=== PATIENT | female | born 1960 | race Caucasian/White ===

== ENCOUNTER → 2017-12-29 | Outpatient (CLI) | payer MEDICARE ==
--- NOTE | 2017-12-29 14:26 | US ---
EXAMINATION TYPE: US carotid duplex BILAT DATE OF EXAM: 12/29/2017 COMPARISON: NONE CLINICAL HISTORY: I69.3 Stroke. Pt in wheel chair always EXAM MEASUREMENTS: RIGHT: Peak Systolic Velocity (PSV) cm/sec ----- Right CCA: 103 ----- Right ICA: 76.1 ----- Right ECA: 79.9 ICA/CCA ratio: 0.7 RIGHT: End Diastole cm/sec ----- Right CCA: 16.3 ----- Right ICA: 15.7 ----- Right ECA: 10.9 LEFT: Peak Systolic Velocity (PSV) cm/sec ----- Left CCA: 94.4 ----- Left ICA: 68.9 ----- Left ECA: 51.6 ICA/CCA ratio: 0.7 LEFT: End Diastole cm/sec ----- Left CCA: 18.7 ----- Left ICA: 24.4 ----- Left ECA: 5.1 VERTEBRALS (direction of flow): Right Vertebral: Antegrade Left Vertebral: non visualization Rhythm: Normal IMPRESSION: 1. Mild degree of grayscale atheromatous plaquing with no sonographically evident hemodynamically sig nificant stenosis within either visualized carotid arterial system. 2. Nonvisualization of the left vertebral artery. If there is concern for occlusion CT neck could be performed.
== END ==
LOC: RADUSWWP 13:34
PROVIDERS: ATTEND Psychiatry & Neurology Neurology
DX: I63.9 Cerebral infarction, unspecified (principal)
CPT/HCPCS: 93880

== ENCOUNTER → 2018-01-15 | Outpatient (CLI) | payer OTHER, MEDICARE ==
--- NOTE | 2018-01-15 18:28 | CT ---
EXAMINATION TYPE: CT cervical spine wo con DATE OF EXAM: 01/15/2018 COMPARISON: None HISTORY: neck pain, no injury CT DLP: 690 mGycm Automated exposure control for dose reduction was used. TECHNIQUE: CT scan of the cervical spine is obtained without contrast, axial images are obtained, sa gittal and coronal reformatted images are also reviewed. FINDINGS: There is moderate narrowing at C5-6 C6-7 disc spaces with spur formation. There is mild str aightening of the cervical spine. The posterior elements are intact. Skull base is intact. There is n o evidence for fracture. IMPRESSION: Spondylotic changes. No fracture seen. There is mild relative spinal stenosis at C5-6 due to posterior spur formation.
--- NOTE | 2018-01-17 11:19 | MR ---
EXAMINATION TYPE: MR brain wo con DATE OF EXAM: 01/15/2018 6:19 PM COMPARISON: NONE HISTORY: Cerebral infarction FINDINGS: The ventricles, basal cisterns and sulci overlying the cerebral convexities are moderately enlarged. There is evidence of moderate periventricular white matter ischemic demyelination. Remote deep white matter insults are also noted. Remote insult right temporal lobe. No acute edema is seen on diffusion weighted imaging. There is no evidence for midline shift or mass effect. Acute intracranial hemorrhage or extra-axial collection is not evident. The paranasal sinuses and mastoid air cells are well-aerated. IMPRESSION: Age-related atrophic and chronic small vessel ischemic change. No acute intracranial process at this time.
== END | disposition home or self-care (01) ==
LOC: RADCTMAIN 17:27
PROVIDERS: ATTEND Psychiatry & Neurology Neurology
DX: G31.1 Senile degeneration of brain, not elsewhere classified (principal); I67.82 Cerebral ischemia; M48.02 Spinal stenosis, cervical region; M47.812 Spondylosis without myelopathy or radiculopathy, cervical region
CPT/HCPCS: 70551; 72125

== ENCOUNTER → 2018-02-18 | Outpatient (CLI) | payer OTHER, MEDICARE ==
--- NOTE | 2018-02-18 12:52 | CT ---
EXAMINATION TYPE: CT angio neck DATE OF EXAM: 02/18/2018 HISTORY: Cerebral infarction. COMPARISON: 01/15/2018 CT DLP: 389.8 mGycm. Automated Exposure Control for Dose Reduction was Utilized. TECHNIQUE: CTA scan of the neck is performed with IV Contrast, patient injected with 60 mL of Isovue 370, axial images are obtained, coronal and sagittal reformatted images are reviewed. Three-D recons tructed images are created on an independent workstation and reviewed. Source images are reviewed. FINDINGS: Carotid/Vascular Structures: Internal carotid arteries follow a tortuous course to the skull base. Th e mid internal carotid arteries and the fairly medial position in the space posterior to the paraphar yngeal soft tissues. Carotid bulbs appear normal. Internal carotid arteries appear normal without sig nificant flow-limiting stenosis. Vertebral arteries are codominant. Vertebral arteries are patent to the level of the basilar artery. Other: There is limited evaluation of the minto of Iglesias which appears grossly normal. IMPRESSION: 1. No significant stenosis at the internal carotid arteries. 2. Note the mid internal carotid arteries following a tortuous course are fairly medial and in the pr evertebral soft tissues at the level of the mandible.
== END | disposition home or self-care (01) ==
LOC: RADCTMAIN 10:52
PROVIDERS: ATTEND Psychiatry & Neurology Neurology
DX: I63.9 Cerebral infarction, unspecified (principal)
CPT/HCPCS: 70498; Q9967

== ENCOUNTER → 2018-10-04 | Outpatient (CLI) | payer MEDICARE ==
[2018-10-04 17:51] LABS: African American GFR (CKD) 110.7 (60.0-200.0); Albumin 4.3 g/dL (3.80-4.90); Albumin/Globulin Ratio 1.87 (1.60-3.17); Anion Gap 10.5 mmol/L (4.00-12.00); BUN/Creat Ratio 18.57 Ratio (12.00-20.00); C Reactive Protein 1.6 mg/dL (0.0-0.8); Calcium 9.6 mg/dL (8.7-10.3); Carbon Dioxide 28.5 mmol/L (21.6-31.8); Globulin 2.3 g/dL (1.6-3.3); Potassium 3.8 mmol/L (3.5-5.5); Total Bilirubin 0.3 mg/dL (0.3-1.2); Total Protein 6.6 g/dL (6.2-8.2)
== END | disposition home or self-care (01) ==
LOC: LABWHC1 10:56
PROVIDERS: ATTEND Psychiatry & Neurology Pain Medicine
DX: M62.81 Muscle weakness (generalized) (principal); R41.3 Other amnesia
CPT/HCPCS: 36415; 80053; 82550; 85652; 86140

== ENCOUNTER 2019-04-14 10:13 | Day surgery (SDC) | payer MEDICARE ==
[2019-04-12 10:38] VITALS: BMI 45.6
[~2019-04-14 10:13] MED LIST: LACTATED RINGERS 1,000 ML IV SCH; LIDOCAINE 1% (10MG/ML) FOR IV START INTRADERMA PRN
[2019-04-14 10:50] VITALS: TEMP 97.3
[2019-04-14] MEDS ORDERED: PROPOFOL 10 MG/ML 20 ML VIAL IV ONE (11:26)
[2019-04-14] MEDS ORDERED: LIDOCAINE 1% INJ 10MG/ML (20 ML MDV) ONE (11:26)
--- NOTE | 2019-04-14 12:13 | P.PCN ---
Date of Procedure: 04/14/19 Procedure(s) Performed: BRIEF HISTORY: Patient is a 58-year-old pleasant white female with history of paraplegia and wheelchair-bound is being evaluated for intermittent rectal bleeding and hence scheduled for an elective colonoscopy as a part of evaluation. PROCEDURE PERFORMED: Colonoscopy. PREOPERATIVE DIAGNOSIS: Intermittent rectal bleeding. IV sedation per Anesthesia. PROCEDURE: After informed consent was obtained, the patient, was brought into the endoscopy unit. IV sedation was administered by Anesthesia under continuous monitoring. Digital rectal examination was normal. Initially the Olympus CF-160 flexible video colonoscope was then inserted in the rectum, gradually advanced into the hepatic flexure and further advancement advancement was not possible despite applying abdominal pressure and changing patient position. After trying this for 10 minutes I decided not to proceed any further, and this time the scope was gradually withdrawn. Careful examination was performed as the scope was gradually withdrawn. Mucosa of the transverse colon, descending colon, sigmoid colon, and rectum appeared normal. Retroflexion was performed in the rectum and small internal hemorrhoids hemorrhoids with prolapse ere seen. The patient tolerated the procedure well. IMPRESSION: Normal-appearing colon from rectum to hepatic flexure and further advancement was not possible. Small internal hemorrhoids and small rectal prolapse RECOMMENDATIONS: Findings of this examination were discussed with the patient as well as her caregiver. she was advised to avoid straining and constipation. She can have a repeat colonoscopy in 10 years.
[2019-04-14 13:10] VITALS: PULSE 77
[2019-04-14 13:11] VITALS: BP 135/74; RESP 18
== END 2019-04-14 13:12 | disposition home or self-care (01) ==
LOC: ORWHC2ENDO 10:13
PROVIDERS: ATTEND Internal Medicine Gastroenterology
DX: K64.8 Other hemorrhoids (principal); K62.5 Hemorrhage of anus and rectum; E78.5 Hyperlipidemia, unspecified; N31.9 Neuromuscular dysfunction of bladder, unspecified; Z79.899 Other long term (current) drug therapy; Z79.2 Long term (current) use of antibiotics; Z79.82 Long term (current) use of aspirin; Z90.710 Acquired absence of both cervix and uterus
CPT/HCPCS: 45378; J2001; J2704

== ENCOUNTER → 2019-04-18 | Day surgery (SDC) | payer MEDICARE ==
[~2019-04-18] MED LIST changes: +IOPAMIDOL-250 50ML BTL IV ONE; -LACTATED RINGERS 1,000 ML IV SCH; -LIDOCAINE 1% (10MG/ML) FOR IV START INTRADERMA PRN; +LIDOCAINE 1% INJ 10MG/ML (20 ML MDV) SQ ONE
--- NOTE | 2019-04-18 19:40 | IR ---
PICC LINE PLACEMENT: HISTORY: Infection requiring long-term antibiotic therapy PROCEDURE: Ultrasound and fluoroscopic guidance of PICC line placement. COMPLICATIONS: None ANESTHESIA: 1. 1% Lidocaine locally. FINDINGS/TECHNIQUE: The procedure was explained to the patient. The risks, complications, benefits and alternatives were discussed and any questions were answered. Informed consent was obtained. The patient was placed supine on the fluoroscopic table and prepped and draped in the usual sterile fash ion. Utilizing a 21 gauge needle and sonographic and fluoroscopic guidance, access in the right bra chial vein was achieved and there is placement of a 0.018 guidewire. The vein is patent. A 4-F olivares th was placed over the guidewire. The guidewire and dilator were removed and a 4-F. PICC line was pl aced through the sheath with the tip at the level of the SVC. The sheath was removed, the catheter w as flushed and sutured into position. The patient was stable throughout the procedure and remained s table upon discharge from the Department of Radiology. The vein puncture was patent under ultrasound. A rivas scale image was obtained to document patency of the vein punctured. All elements of the maximal barrier technique were utilized. FLUOROSCOPY TIME: 0.8 minutes and one image submitted IMPRESSION: Successful PICC line placement under ultrasound and fluoroscopic guidance.
== END ==
LOC: CATHCVL 14:24
PROVIDERS: ATTEND Radiology Diagnostic Radiology
DX: N39.0 Urinary tract infection, site not specified (principal); B37.3 Candidiasis of vulva and vagina; R53.83 Other fatigue; G89.29 Other chronic pain; I10 Essential (primary) hypertension; K59.00 Constipation, unspecified; E66.01 Morbid (severe) obesity due to excess calories; E78.5 Hyperlipidemia, unspecified; E87.5 Hyperkalemia; Z99.3 Dependence on wheelchair; Z79.2 Long term (current) use of antibiotics; Z79.899 Other long term (current) drug therapy; Z79.82 Long term (current) use of aspirin; Z68.36 Body mass index [BMI] 36.0-36.9, adult; Z90.710 Acquired absence of both cervix and uterus
CPT/HCPCS: 36573; C1751; C1769; J2001; Q9966

== ENCOUNTER → 2020-01-11 | Day surgery (SDC) | payer MEDICARE ==
[~2020-01-11] MED LIST changes: -IOPAMIDOL-250 50ML BTL IV ONE; +LIDOCAINE 1% INJ 10MG/ML (20 ML MDV) ONE
[2020-01-11 11:48] VITALS: BP 161/78; PULSE 74; RESP 16; TEMP 97.8
--- NOTE | 2020-01-11 14:02 | IR ---
EXAMINATION TYPE: IR cvc insert >=5 years DATE OF EXAM: 01/11/2020 COMPARISON: NONE CLINICAL HISTORY: Infection Needs long-term intravenous access for antibiotics. PROCEDURE: Hand hygiene obtained with soap and water and alcohol-based hand rub. After informed consent, the skin overlying the left brachial vein was localized with ultrasound and n oted to be compressible and patent. An ultrasound image was obtained and submitted on the patient's chart. The overlying skin was prepped and draped and Lidocaine was used for local anesthesia. A ski n sweta was made with a scalpel. Access was gained to the vein under ultrasound guidance with a 21 ga uge needle and a 0.018 inch wire was advanced. Access site was dilated with Peel-Away sheath and cat heter tailored to the appropriate length and advanced such that the distal tip is at the cavoatrial j unction. Spot image was obtained verifying placement. Catheter was fixed to the skin and a sterile dressing was placed following hemostasis. Catheter was aspirated and flushed with saline. Patient w as discharged in stable condition without complication.Maximal barrier technique is utilized. Ultras ound image is documented on the chart. Ultrasound used with sterile technique. Fluoro time and fluoroscopic images submitted to document procedure: 0.5 minutes fluoroscopy time, 21 3 intraoperative C-arm images IMPRESSION: STATUS POST ULTRASOUND AND FLUOROSCOPIC GUIDED PICC LINE PLACEMENT, READY FOR USE. THIS PROCEDURE WAS PERFORMED BY THE UNDERSIGNED.
== END ==
LOC: CATHCVL 10:50
PROVIDERS: ATTEND Radiology Diagnostic Radiology
DX: N39.0 Urinary tract infection, site not specified (principal); G89.29 Other chronic pain; H10.10 Acute atopic conjunctivitis, unspecified eye; B37.2 Candidiasis of skin and nail; I10 Essential (primary) hypertension; E87.5 Hyperkalemia; E78.5 Hyperlipidemia, unspecified; G47.00 Insomnia, unspecified; E66.01 Morbid (severe) obesity due to excess calories; N32.81 Overactive bladder; B37.3 Candidiasis of vulva and vagina; E55.9 Vitamin D deficiency, unspecified; Z79.82 Long term (current) use of aspirin; Z79.52 Long term (current) use of systemic steroids; Z79.899 Other long term (current) drug therapy; Z87.19 Personal history of other diseases of the digestive system; Z99.3 Dependence on wheelchair; Z79.891 Long term (current) use of opiate analgesic; Z68.43 Body mass index [BMI] 50.0-59.9, adult; Z90.710 Acquired absence of both cervix and uterus
CPT/HCPCS: 36573; C1751; C1769; J2001

== ENCOUNTER → 2021-01-25 | Outpatient (CLI) | payer MEDICARE ==
[2021-01-25 13:18] VITALS: BP 101/70; PULSE 79; RESP 18; TEMP 98.1
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
== END ==
LOC: WWCWWP 12:57
PROVIDERS: ATTEND Surgery
DX: N63.11 Unspecified lump in the right breast, upper outer quadrant (principal); R92.8 Other abnormal and inconclusive findings on diagnostic imaging of breast; S06.2X9A Diffuse traumatic brain injury with loss of consciousness of unspecified duration, initial encounter; R41.3 Other amnesia; Z87.891 Personal history of nicotine dependence

== ENCOUNTER → 2021-01-28 | Day surgery (SDC) | payer MEDICARE ==
[2021-01-28 13:01] VITALS: RESP 12
[2021-01-28 14:27] VITALS: BP 117/62; PULSE 97; TEMP 98.7
--- NOTE | 2021-01-28 19:56 | USB ---
EXAMINATION TYPE: US biopsy breast VAD RT DATE OF EXAM: 01/28/2021 CLINICAL HISTORY: 60-year-old female referred for biopsy of palpable right breast mass. Special needs patient in wheelchair. TECHNIQUE: Ultrasound guided core biopsy of the right breast. COMPARISON: Outside workup not available for review. FINDINGS: The procedure of ultrasound guided core biopsy was explained to the patient. Benefits, alternatives, and risks were discussed with the patient and caregiver. An informed consent was then obtained. The patient was placed in supine positioning for imaging and for the procedure. The overlying skin was prepped and draped in usual sterile fashion. Lidocaine was used as anesthetic into the skin followed by lidocaine/epinephrine into the subcutaneous tissue up to area of concern in the 9:00 right breast. Large lobulated vascular mass measuring up to 3.4 cm was identified and targeted for biopsy. Speckled calcifications are present within the mass. Under ultrasound guidance, a 13-gauge vacuum-assisted mammotome Elite biopsy gun was used to obtain 4 core samples. Following this, a Hydromark biopsy clip was left in lesion. The patient tolerated the procedure well without any immediate complication. The patient was kept in the radiology department for short stay after the procedure and then discharged home in stable condition. Given the patient's limited mobility and the lack of any available recent workup, postbiopsy mammogram was deferred at this time. If outside workup is made available for review and postbiopsy mammogram is needed for surgical planning, imaging can be performed at that time. IMPRESSION: Successful, uncomplicated ultrasound guided core biopsy of the BI-RADS 5, 3.4 cm palpable 9:00 right breast mass. Special needs patient with procedure performed in the wheelchair. Full pathology results to follow. Pathology Results: Malignant RIGHT BREAST, ULTRASOUND GUIDED CORE BIOPSY: Invasive solid papillary carcinoma. See Surgical Pathology Cancer Case Summary and Comment. Recommendation Surgical consult of the right breast. [facility]
== END ==
LOC: RADUSWWP 12:00
PROVIDERS: ATTEND Surgery
DX: C50.911 Malignant neoplasm of unspecified site of right female breast (principal)
CPT/HCPCS: 19083; 88305; 88342; 88341; A4648; J2001

== ENCOUNTER → 2021-02-08 | Outpatient (CLI) | payer MEDICARE ==
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
== END ==
LOC: WWCWWP 10:19
PROVIDERS: ATTEND Surgery
DX: C50.911 Malignant neoplasm of unspecified site of right female breast (principal); S09.90XA Unspecified injury of head, initial encounter; Z87.891 Personal history of nicotine dependence

== ENCOUNTER 2021-03-12 10:10 | Day surgery (SDC) | payer MEDICARE ==
[2021-03-06 13:38] VITALS: BMI 34.4
[~2021-03-12 10:10] MED LIST changes: +ALPRAZolam 0.5 MG TAB PO PRN; +DEXAMETHASONE SOD PHOSPHATE 4 MG/ML 1 ML VIAL IV ONE; +HEPARIN SODIUM,PORCINE/PF 5,000 UNIT/0.5 ML SYRINGE SQ PRN; +HYDROmorphone 0.5 MG/0.5 ML SYRINGE IVP PRN; +LACTATED RINGERS 1,000 ML IV SCH; +LIDOCAINE 1% (10MG/ML) FOR IV START INTRADERMA ONE; -LIDOCAINE 1% INJ 10MG/ML (20 ML MDV) ONE; -LIDOCAINE 1% INJ 10MG/ML (20 ML MDV) SQ ONE; +ONDANSETRON 4 MG/2 ML VIAL IVP ONE; +Pre Op ABX Message 1 EACH MISC MISCELLANE ONE
[2021-03-12] MEDS ORDERED: LIDOCAINE 1% INJ 10MG/ML (20 ML MDV) SQ ONE ×5 (11:37→15:05)
[2021-03-12] MEDS ORDERED: PROPOFOL 10 MG/ML 20 ML VIAL IV ONE (12:07)
[2021-03-12] MEDS ORDERED: LIDOCAINE 1% INJ 10MG/ML (20 ML MDV) ONE (12:07)
[2021-03-12] MEDS ORDERED: fentaNYL (PF) 50 MCG/ML 2 ML AMP ONE (12:07)
--- NOTE | 2021-03-12 13:13 | NM ---
EXAMINATION TYPE: NM sentinel node injection DATE OF EXAM: 03/12/2021 COMPARISON: NONE INDICATION: Abnormal mammogram. Informed consent was obtained. A timeout was performed. The area around the right nipple was cleansed with alcohol. In a single dose, a total of 545 uCi Te chnetium 99m Tilmanocept was injected. The patient tolerated the procedure very well. IMPRESSIONS: 1. Successful injection for sentinel node evaluation.
--- NOTE | 2021-03-12 14:26 | USB ---
EXAMINATION TYPE: US breast surgical specimen RT DATE OF EXAM: 03/12/2021 COMPARISON: 03/12/2021 localization ultrasound HISTORY: Breast mass TECHNIQUE: Real-time linear array sonography is performed over the specimen. FINDINGS: The wire is identified. The wire appears to remain in place in relation to the hypoechoic a nd isoechoic masses identified within the breast for localization. IMPRESSION: 1. Successful excision ultrasound localized right breast mass
[2021-03-12] MEDS ORDERED: LACTATED RINGERS 1,000 ML IV ONE (14:45)
--- NOTE | 2021-03-12 14:58 | P.NAPBC ---
NAPBC Queries - NAPBC Queries Was patient's case review presented at [facility] tumor board? If no, comment.: Yes Was patient's pathology reviewed at [facility]? If no, comment.: Yes Was breast conservation surgery offered? If no, comment.: Yes Was sentinel node biopsy offered? If no, comment.: Yes Was diagnosis confirmed by percutaneous core biopsy? If no, comment.: Yes Is patient mastectomy patient?: No Was a preop referral to reconstructive surgeon offered?: No Clinical Stage: stage IB [id number]-[id number]
--- NOTE | 2021-03-12 15:04 | P.OP ---
Date of Procedure: 03/12/21 Preoperative Diagnosis: Right breast stage IB invasive ductal carcinoma Postoperative Diagnosis: Same Procedure(s) Performed: [place] node biopsy lumpectomy with needle localization, onco-plastic tissue transfer, inferior pillarr 36 cm plus superior pillar 16 cm total 52 cm Anesthesia: MORENAA Surgeon: Mariia Gibbs Estimated Blood Loss (ml): 30 IV fluids (ml): 900 Pathology: other ([place] node, breast tissue) Condition: stable Disposition: same day Indications for Procedure: Biopsy-proven invasive ductal carcinoma right breast Operative Findings: Fibrofatty breast tissue/breast tumor Description of Procedure: The patient is a 60-year-old closed head injury patient who resides in a nursing facility. She was noted to have a mass in her right breast and workup revealed a T2 invasive ductal carcinoma. Secondary to poor mobility she was not felt to be a candidate for radiation therapy. Despite this her guardian has recommended lumpectomy after discussion with the patient. They understood his margins were negative more tissue needed to be removed. Additionally sentinel node biopsy will be performed. Ultrasound localization of the area of concern was performed as well as inje ction of radioactive substance of the periareolar region. The patient was then brought to the operative suite and following induction of anesthesia the axilla was interrogated. The radioactive tracer was noted to have traveled to the axilla. Following induction of anesthesia the axilla and breast were prepped and draped in a sterile fashion. An incision was made in the axilla at the site of greatest radioactivity. Dissection was performed down into the axilla. The radioactive lymph node was identified. This was removed. The seminal white count was 6303. The background count was 24. No other palpable adenopathy of concern was identified. The deep tissues were closed. The skin was closed using a Vicryl suture followed by a 4-0 Monocryl. Steri-Strips applied. The area of the breast was approached. An incision was made removing an area of skin anteriorly the area of the palpable tumor. This was carried down around the patella the lesion as well as the shaft of the needle including tissue down to the pectoralis muscle. The specimen was sent for radiographic evaluation in the area of concern was noted to be present. Additionally who superior inferior medial lateral margins were obtained. Anteriorly the skin was removed and posteriorly dissection was the pectoralis muscle. The patient then had an inferior pole which was 9 cm x 4 cm mobilize the superior pole which was a centimeters by 2 cm mobilize. The wound was well irrigated. Titanium clips were placed. The patient was brought together using 3-0 Vicryl suture. The drain was placed. The subcutaneous tissue was closed using 3-0 Vicryl suture. This is followed by closure with 4-0 Monocryl and nylon skin suture. The drain was secured using a nylon suture. The patient tolerated the procedure in stable condition. All instrument and sponge counts were correct at the end of the case.
--- NOTE | 2021-03-12 15:08 | P.DS ---
Providers Attending physician: Mariia Gibbs Primary care physician: Kyle Matamoros MD Plan - Discharge Summary Discharge Rx Participant: No New Discharge Prescriptions: No Action Baclofen [Lioresal] 20 mg PO BID lamoTRIgine [LaMICtal] 100 mg PO BID Lactulose 15 ml PO DAILY Docusate [Colace] 100 mg PO BID Melatonin 5 mg PO HS Gabapentin [Neurontin] 800 mg PO Q8HR hydroCHLOROthiazide [Hydrodiuril] 25 mg PO DAILY DULoxetine HCL [Cymbalta] 60 mg PO DAILY Aspirin [Adult Low Dose Aspirin EC] 81 mg PO DAILY Magnesium Hydroxide [Milk of Magnesia] 30 ml PO DAILY PRN PRN Reason: Constipation,if no BM in 3 day HYDROcodone/APAP 5-325MG [Davin 5-325] 1 tab PO Q8HR PRN PRN Reason: Pain Acetaminophen [Tylenol Extra Strength] 500 mg PO Q6H PRN PRN Reason: Pain Cetirizine HCl [Zyrtec] 10 mg PO HS traZODone HCL 100 mg PO HS Tolterodine ER [Detrol LA] 4 mg PO HS Propylene Glycol/Peg 400/Pf [Systane 0.3-0.4% Eye Drop] 2 drop BOTH EYES BID Sennosides/Docusate Sodium [Senna Plus 8.6-50 mg Tablet] 2 tab PO HS Multivitamins, Thera [Multivitamin (formulary)] 1 tab PO DAILY prednisoLONE ACETATE 1% OPHTH [Pred Forte 1%] 1 drops BOTH EYES TID Pravastatin Sodium [Pravachol] 20 mg PO HS Colloidal Oatmeal [Eucerin Eczema Relief] 1 applic TOPICAL DAILY Clotrimazole/Betameth Cream [Lotrisone] 1 applic TOPICAL TID Nystatin 100,000 Unit/gm Powd [Mycostatin Powder] 1 applic TOPICAL BID PRN PRN Reason: redness, rash Ergocalciferol [Vitamin D2 (1250 Mcg = 74537 Iu)] 1,250 mcg PO MO Potassium Chloride [Klor-Con M20] 20 meq PO DAILY Discharge Medication List Baclofen [Lioresal] 20 mg PO BID 03/28/14 [History] Lactulose 15 ml PO DAILY 03/28/14 [History] lamoTRIgine [LaMICtal] 100 mg PO BID 03/28/14 [History] Docusate [Colace] 100 mg PO BID 07/12/15 [History] Aspirin [Adult Low Dose Aspirin EC] 81 mg PO DAILY 04/12/19 [History] DULoxetine HCL [Cymbalta] 60 mg PO DAILY 04/12/19 [History] Gabapentin [Neurontin] 800 mg PO Q8HR 04/12/19 [History] Melatonin 5 mg PO HS 04/12/19 [History] hydroCHLOROthiazide [Hydrodiuril] 25 mg PO DAILY 04/12/19 [History] Acetaminophen [Tylenol Extra Strength] 500 mg PO Q6H PRN 04/20/19 [History] Cetirizine HCl [Zyrtec] 10 mg PO HS 04/20/19 [History] Clotrimazole/Betameth Cream [Lotrisone] 1 applic TOPICAL TID 04/20/19 [History] Colloidal Oatmeal [Eucerin Eczema Relief] 1 applic TOPICAL DAILY 04/20/19 [History] HYDROcodone/APAP 5-325MG [Davin 5-325] 1 tab PO Q8HR PRN 04/20/19 [History] Magnesium Hydroxide [Milk of Magnesia] 30 ml PO DAILY PRN 04/20/19 [History] Multivitamins, Thera [Multivitamin (formulary)] 1 tab PO DAILY 04/20/19 [History] Nystatin 100,000 Unit/gm Powd [Mycostatin Powder] 1 applic TOPICAL BID PRN 04/20/19 [History] Pravastatin Sodium [Pravachol] 20 mg PO HS 04/20/19 [History] Propylene Glycol/Peg 400/Pf [Systane 0.3-0.4% Eye Drop] 2 drop BOTH EYES BID 04/20/19 [History] Sennosides/Docusate Sodium [Senna Plus 8.6-50 mg Tablet] 2 tab PO HS 04/20/19 [History] Tolterodine ER [Detrol LA] 4 mg PO HS 04/20/19 [History] prednisoLONE ACETATE 1% OPHTH [Pred Forte 1%] 1 drops BOTH EYES TID 04/20/19 [History] traZODone HCL 100 mg PO HS 04/20/19 [History] Ergocalciferol [Vitamin D2 (1250 Mcg = 52851 Iu)] 1,250 mcg PO MO 03/06/21 [History] Potassium Chloride [Klor-Con M20] 20 meq PO DAILY 03/06/21 [History] Follow up Appointment(s)/Referral(s): Mariia Gibbs MD [STAFF PHYSICIAN] - 03/21/21 10:20 am Activity/Diet/Wound Care/Special Instructions: Guillermo wrap in place at all times May sponge bath after [address] keep to suction drain and recorded twice a day and as needed Discharge Disposition: OTHER INSTITUTION NOT DEFINED
[2021-03-12 15:45] VITALS: TEMP 97.9
--- NOTE | 2021-03-12 15:53 | USB ---
EXAMINATION TYPE: Ultrasound-guided wire localization DATE OF EXAM: 03/12/2021 COMPARISON: 01/28/2021 ultrasound core biopsy CLINICAL HISTORY: Breast mass with malignant biopsy results TECHNIQUE: Our localization by ultrasound guidance localization with wire placement and surgical exci yared of area of concern in the right breast. FINDINGS: The procedure of ultrasound-guided wire localization with wire placement for surgical excis ion was explained to the patient. Risk, benefits, and alternatives were discussed. An informed cons ent was then obtained. A timeout was performed. The procedure was performed in preop. The overlying skin was prepped and draped in usual sterile fash ion. Lidocaine 1% was used as anesthetic into the skin and subcutaneous tissue up to the level of ar ea of concern. A 9 cm needle was used. This was placed via a lateral approach under ultrasound guid ance. The wire was placed through the needle and the needle was withdrawn. The wire was fixed to pa tient's skin. Real-time imaging was reviewed with the surgeon following wire placement. The patient tolerated the procedure well without any immediate complication. Specimen: Mammogram: The wire is identified within the specimen mammogram. Ultrasound specimen: The lobular areas intended for localization are identified wi thin the ultrasound specimen. The wires identified within the specimen. IMPRESSION: 1. Successful wire localization and excision. Recommendations: 1. Recommendations are pending pathology results.
[2021-03-12] MEDS ORDERED: HYDROcodone/APAP 5-325MG 1 EACH TAB ONE (16:50)
[2021-03-12] MEDS ORDERED: HYDROcodone/APAP 5-325MG 1 EACH TAB PO ONE (16:50)
[2021-03-12 17:52] VITALS: BP 132/78; PULSE 74; RESP 15
== END 2021-03-12 18:35 | disposition other institution (70) ==
LOC: OR 10:10
PROVIDERS: ATTEND Surgery
DX: C50.411 Malignant neoplasm of upper-outer quadrant of right female breast (principal); C50.911 Malignant neoplasm of unspecified site of right female breast; N60.11 Diffuse cystic mastopathy of right breast; R92.1 Mammographic calcification found on diagnostic imaging of breast; Z90.710 Acquired absence of both cervix and uterus; G82.20 Paraplegia, unspecified; Z87.820 Personal history of traumatic brain injury; R41.3 Other amnesia; N31.9 Neuromuscular dysfunction of bladder, unspecified; Z96.0 Presence of urogenital implants; E66.9 Obesity, unspecified; Z68.34 Body mass index [BMI] 34.0-34.9, adult; G89.29 Other chronic pain; M54.9 Dorsalgia, unspecified; M79.606 Pain in leg, unspecified; Z87.891 Personal history of nicotine dependence; Z98.890 Other specified postprocedural states; Z79.82 Long term (current) use of aspirin; Z79.899 Other long term (current) drug therapy
CPT/HCPCS: 88342; 88307; 88341; 76098; 76999; 19285; 38792; 19301; 38525; A9520; J1100; J2405; J2001; J3010; J2704; J1644

== ENCOUNTER → 2021-03-21 | Outpatient (CLI) | payer MEDICARE ==
[2021-03-21 10:51] VITALS: BP 118/72; PULSE 77; RESP 18; TEMP 97.7
--- NOTE | 2021-03-21 11:09 | P.PN ---
Progress Note - Text Progress Note Date: 03/21/21 Mikala is a 60 year-old mentally challenged white female status post right breast lumpectomy and axillary node sampling on 1422. Her margins are all negative in her axillary nodes are negative for any metastatic disease. The EAGLE drainage has been minimal. She does have some drainage around the drain entrance site. Physical exam: Lungs: Clear Heart: Regular rate and rhythm Incision: Mild ecchymosis but clean and dry external sutures are in place EAGLE drain site minimal drainage with some drainage around the drain Plan: Remove EAGLE drain The sutures until next week Follow up next week Follow up with medical oncology We have discussed radiation therapy prior to her surgery and it was noted that she would not be a good candidate for this. Despite this the family opted for a lumpectomy and at this time the patient does have negative margins. CC: Visiting Physician
== END ==
LOC: WWCWWP 10:23
PROVIDERS: ATTEND Surgery
DX: Z48.817 Encounter for surgical aftercare following surgery on the skin and subcutaneous tissue (principal); G43.909 Migraine, unspecified, not intractable, without status migrainosus; F99 Mental disorder, not otherwise specified; Z87.891 Personal history of nicotine dependence

== ENCOUNTER → 2021-03-29 | Outpatient (CLI) | payer MEDICARE ==
[2021-03-29 12:23] VITALS: BP 117/82; PULSE 50; RESP 18; TEMP 97.6
--- NOTE | 2021-03-29 12:48 | P.PN ---
Progress Note - Text Progress Note Date: 03/29/21 Mikala is a 60 year-old mentally challenged white female status post right breast lumpectomy and axillary node sampling on 1422. Her margins are all negative in her axillary nodes are negative for any metastatic disease. She had the EAGLE drain removed on her last visit. She is here today for suture removal. Physical exam: Lungs: Clear Heart: Regular rate and rhythm Incision: clean and dry external sutures are in place Plan: remove sutures Follow up 4 months Follow up with medical oncology We have discussed radiation therapy prior to her surgery and it was noted that she would not be a good candidate for this. Despite this the family opted for a lumpectomy and at this time the patient does have negative margins. Will follow closely. CC:
== END ==
LOC: WWCWWP 12:04
PROVIDERS: ATTEND Surgery
DX: Z09 Encounter for follow-up examination after completed treatment for conditions other than malignant neoplasm (principal); Z98.890 Other specified postprocedural states; Z87.891 Personal history of nicotine dependence

== ENCOUNTER 2021-09-30 16:08 | Emergency (ER) | payer MEDICARE ==
[2021-09-30 16:55] VITALS: RESP 18; TEMP 100.3
[2021-09-30] MEDS ORDERED: SODIUM CHLORIDE 0.9% 1,000 ML IV STA ×2 (17:15)
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
[2021-09-30] MEDS ORDERED: ACETAMINOPHEN TAB 500 MG TAB PO STA (17:23)
[2021-09-30 17:57] LABS: Basophils # (A) 0.1 k/uL (0-0.2); Basophils % (A) 1 %; Eosinophils # (A) 0.1 k/uL (0-0.7); Eosinophils % (A) 2 %; HCT 45.8 % (34.0-46.0); HGB 14.4 gm/dL (11.4-16.0); Lymphocytes # (A) 0.7 k/uL (1.0-4.8); Lymphocytes % (A) 7 %; MCH 27.1 pg (25.0-35.0); MCHC 31.3 g/dL (31.0-37.0); MCV 86.6 fL (80.0-100.0); Mean Platelet Volume 8.4; Monocytes # (A) 0.6 k/uL (0-1.0); Monocytes % (A) 6 %; Neutrophils # (A) 8.3 k/uL (1.3-7.7); Neutrophils % (A) 84 %; Platelet Count 219 k/uL (150-450); RBC 5.29 m/uL (3.80-5.40); RDW 14.4 % (11.5-15.5); WBC 9.8 k/uL (3.8-10.6)
[2021-09-30 18:14] LABS: ALT 15 U/L (4-34); AST 24 U/L (14-36); African American GFR (CKD) >90 (>60 ml/min/1.73 sqM); Albumin 4.5 g/dL (3.5-5.0); Alkaline Phosphatase 166 U/L (38-126); Anion Gap 11 mmol/L; Blood Urea Nitrogen 15 mg/dL (7-17); Calcium 9.9 mg/dL (8.4-10.2); Carbon Dioxide 32 mmol/L (22-30); Chloride 93 mmol/L (98-107); Glucose 124 mg/dL (74-99); Non-African American GFR(CKD) >90 (>60 ml/min/1.73 sqM); Potassium 4.3 mmol/L (3.5-5.1); Sodium 136 mmol/L (137-145); Total Bilirubin 0.5 mg/dL (0.2-1.3); Total Protein 7.8 g/dL (6.3-8.2)
--- NOTE | 2021-09-30 18:44 | XR ---
EXAMINATION TYPE: XR chest 1V portable DATE OF EXAM: 09/30/2021 6:11 PM COMPARISON: none TECHNIQUE: XR chest 1V portable Portable AP radiograph of the chest. CLINICAL INDICATION:Female, 61 years old with history of fever; FINDINGS: Lungs/Pleura: There is no evidence of pleural effusion, focal consolidation, or pneumothorax. Elevat ed right diaphragm. Pulmonary vascularity: Unremarkable. Heart/mediastinum: Cardiomediastinal silhouette is unremarkable. Musculoskeletal: No acute osseous pathology. IMPRESSION: No acute cardiopulmonary disease/process.
[2021-09-30 19:30] LABS: Amorphous Sediment,Urine Moderate /hpf; Appearance,Urine Cloudy (Clear); Bacteria,Urine Occasional /hpf; Bilirubin,Urine Negative (Negative); Blood,Urine Negative (Negative); Color,Urine Yellow; Glucose,Urine (UA) Negative (Negative); Ketones,Urine Negative (Negative); Leukocyte Esterase,Urine Large (Negative); Mucus,Urine Rare /hpf; Nitrite,Urine Positive (Negative); Protein,Urine Trace (Negative); RBC,Urine 3 /hpf (0-5); Specific Gravity,Urine 1.016 (1.001-1.035); Squamous Epithelial Cell,Urine 1 /hpf (0-4); Urobilinogen,Urine <2.0 mg/dL (<2.0); WBC,Urine 48 /hpf (0-5)
[2021-09-30 21:18] VITALS: BP 115/73; PULSE 103
== END 2021-09-30 21:33 | disposition home or self-care (01) ==
LOC: EC 16:08
DX: R00.0 Tachycardia, unspecified (principal); U07.1 COVID-19
CPT/HCPCS: 36415; 93005; 80053; 83605; 85025; 81001; 87086; 87502; 87635; 71045; 99285; 96365; 96361; J0696

== ENCOUNTER → 2022-07-07 | Outpatient (CLI) | payer MEDICARE ==
--- NOTE | 2022-07-07 11:30 | USB ---
Reason for Exam: Clinical finding. Patient History: Menarche at age 15. Patient has no children. Left ovary removed at age 20. Right ovary removed at age 20. Hysterectomy at age 20. Postmenopausal. Breast cancer, right, age 60. 03/12/2021, Lumpectomy on the Right side. 03/12/2021, Lumpectomy on the Right side. 03/12/2021, Malignant Core Biopsy on the right side. 01/28/2021, Malignant Core Biopsy on the right side. 03/29/2014, High risk Core Biopsy on the right side. 03/29/2014, High risk Core Biopsy on the right side. 03/03/2014, High risk Cyst Aspiration on the right side. 03/03/2014, High risk Core Biopsy on the right side. Technique: Method: Whole Breast Handheld. Prior Study Comparison: 11/02/2014 Right Diagnostic Mammogram, [facility]. 02/05/2015 Bilateral Diagnostic Mammogram, [facility]. 02/29/2016 Bilateral Diagnostic Mammogram, [facility]. Findings: The whole breast of both breasts, the axilla of both breasts and the retroareolar of both breasts were scanned. Patient not a candidate for mammogram due to body habitus and underlying medical conditions. A complete US of all four quadrants of the breast and retro-areolar region were reviewed. Vague shadowing consistent with posttreatment change 9:00 position 8 cm distance from nipple in the right breast. Left breast shows 3 mm round hypoechoic anechoic lesion 3:00 position 5 cm distance from nipple. Lesion too small to further characterize but presumed benign, suspect thin-walled cyst. Remainder of both breasts shows no concerning solid or cystic mass or abnormal fluid collection. Overall Assessment: Benign, BI-RAD 2 Management: Diagnostic Breast Ultrasound of the right breast in 6 months. Precautionary short-term ultrasound reassessment right breast in 6 months time. Current study is the new baseline. Results were given to the patient verbally at the time of exam. Electronically signed and approved by: Segundo Yoon M.D.
== END | disposition home or self-care (01) ==
LOC: RADMAMWWP 09:45
PROVIDERS: ATTEND Surgery
DX: R92.8 Other abnormal and inconclusive findings on diagnostic imaging of breast (principal); Z85.3 Personal history of malignant neoplasm of breast; Z78.0 Asymptomatic menopausal state

== ENCOUNTER → 2022-07-31 | Outpatient (CLI) | payer MEDICARE ==
[2022-07-31 10:05] VITALS: BP 122/73; PULSE 84; RESP 18; TEMP 98.1
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
== END ==
LOC: WWCWWP 09:47
PROVIDERS: ATTEND Surgery
DX: C50.911 Malignant neoplasm of unspecified site of right female breast (principal); G82.20 Paraplegia, unspecified; N31.9 Neuromuscular dysfunction of bladder, unspecified; Z79.82 Long term (current) use of aspirin; Z87.440 Personal history of urinary (tract) infections; Z87.891 Personal history of nicotine dependence

== ENCOUNTER → 2022-08-11 | Outpatient (CLI) | payer MEDICARE ==
--- NOTE | 2022-08-11 13:13 | MM ---
Reason for Exam: Clinical finding. Last mammogram was performed 6 year(s) and 6 month(s) ago. Patient History: Menarche at age 15. Patient has no children. Left ovary removed at age 20. Right ovary removed at age 20. Hysterectomy at age 20. Postmenopausal. Breast cancer, right, age 60. 03/12/2021, Lumpectomy on the Right side. 03/12/2021, Lumpectomy on the Right side. 03/12/2021, Malignant Core Biopsy on the right side. 01/28/2021, Malignant Core Biopsy on the right side. 03/29/2014, High risk Core Biopsy on the right side. 03/29/2014, High risk Core Biopsy on the right side. 03/03/2014, High risk Cyst Aspiration on the right side. 03/03/2014, High risk Core Biopsy on the right side. Tissue Density: The breast tissue is heterogeneously dense. This may lower the sensitivity of mammography. Findings: Analyzed By CAD. Increased density within the posterior upper outer right breast at site of surgery with adjacent surgical clip identified. This may relate to postsurgical change. Evaluation is limited due to the lack of post biopsy mammogram. No suspicious group of calcifications within the right breast. Overall Assessment: Probably benign, BI-RAD 3 Management: Diagnostic Mammogram of the right breast in 6 months. Diagnostic Breast Ultrasound of the right breast in 6 months. A clinical breast exam by your physician is recommended on an annual basis and results should be correlated with mammographic findings. This exam should not preclude additional follow-up of suspicious palpable abnormalities. Results were given to the patient verbally at the time of exam. Electronically signed and approved by: Gallo Camacho D.O.
== END | disposition home or self-care (01) ==
LOC: RADMAMWWP 12:31
PROVIDERS: ATTEND Surgery
DX: Z85.3 Personal history of malignant neoplasm of breast (principal); Z80.3 Family history of malignant neoplasm of breast
CPT/HCPCS: 77066; G0279; 77062

== ENCOUNTER → 2022-08-15 | Outpatient (CLI) | payer MEDICARE ==
[2022-08-15 13:49] VITALS: BP 111/68; PULSE 80; RESP 16; TEMP 98
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
== END ==
LOC: WWCWWP 13:02
PROVIDERS: ATTEND Surgery
DX: C50.911 Malignant neoplasm of unspecified site of right female breast (principal); Z85.3 Personal history of malignant neoplasm of breast; G82.20 Paraplegia, unspecified; S06.9XAA Unspecified intracranial injury with loss of consciousness status unknown, initial encounter; Z17.0 Estrogen receptor positive status [ER+]; Z79.82 Long term (current) use of aspirin; Z87.440 Personal history of urinary (tract) infections; Z87.891 Personal history of nicotine dependence

== ENCOUNTER → 2023-02-10 | Outpatient (CLI) | payer MEDICARE ==
--- NOTE | 2023-02-10 18:47 | USB ---
Reason for Exam: Additional evaluation requested from prior study. Patient History: Menarche at age 15. Patient has no children. Left ovary removed at age 20. Right ovary removed at age 20. Hysterectomy at age 20. Postmenopausal. Breast cancer, right, age 60. 03/12/2021, Lumpectomy on the Right side. 03/12/2021, Lumpectomy on the Right side. 03/12/2021, Malignant Core Biopsy on the right side. 01/28/2021, Malignant Core Biopsy on the right side. 03/29/2014, High risk Core Biopsy on the right side. 03/29/2014, High risk Core Biopsy on the right side. 03/03/2014, High risk Cyst Aspiration on the right side. 03/03/2014, High risk Core Biopsy on the right side. Technique: Method: Whole Breast Handheld. Prior Study Comparison: 02/05/2015 Bilateral Diagnostic Mammogram, [facility]. 02/29/2016 Bilateral Diagnostic Mammogram, [facility]. 08/11/2022 Bilateral MG 3D diag mammo w/cad JIMMY, [facility]. Findings: The whole breast of the right breast, the axilla of the right breast and the retroareolar of the right breast were scanned. A complete US of all four quadrants of the right breast , axilla, and retro-areolar region were reviewed. There is redemonstrated scar along the 9:00 position of the right breast at the patient's lumpectomy site. No solid or cystic lesion is otherwise seen. Additional targeted scanning of the patient's left breast 3:00 site, 5 cm from the nipple. There is a cyst measuring 5 x 3 x 3 mm. This now has a benign appearance at the previously seen indeterminate hypoechoic lesion, probably debris-filled cyst. Overall Assessment: Probably benign, BI-RAD 3 Management: Diagnostic Mammogram of both breasts in 6 months. For the patient's annual exam and to assess for any evolving posttreatment change in the right breast. A clinical breast exam by your physician is recommended on an annual basis and results should be correlated with mammographic findings. This exam should not preclude additional follow-up of suspicious palpable abnormalities. Results were given to the patient verbally at the time of exam. Electronically signed and approved by: Jaimee Krause M.D. Radiologist
== END | disposition home or self-care (01) ==
LOC: RADUSWWP 10:27
PROVIDERS: ATTEND Surgery
DX: N64.89 Other specified disorders of breast (principal); N60.02 Solitary cyst of left breast; Z85.3 Personal history of malignant neoplasm of breast; Z78.0 Asymptomatic menopausal state

== ENCOUNTER → 2023-02-13 | Outpatient (CLI) | payer MEDICARE ==
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
== END ==
LOC: WWCWWP 13:39
PROVIDERS: ATTEND Surgery
DX: C50.911 Malignant neoplasm of unspecified site of right female breast (principal); G82.20 Paraplegia, unspecified; N60.01 Solitary cyst of right breast; Z87.891 Personal history of nicotine dependence

== ENCOUNTER → 2023-04-13 | Outpatient (CLI) | payer MEDICARE ==
--- NOTE | 2023-04-14 12:25 | BD ---
EXAMINATION TYPE: Axial Bone Density DATE OF EXAM: 04/13/2023 CLINICAL HISTORY: 62 years old Female. ICD-10 CODE: C50.411 BR CA Height: 67 inches Weight: 270 pounds FRAX RISK QUESTIONS: Alcohol (3 or more units per day): No Family History (Parent hip fracture): No Glucocorticoids (More than 3mos): No (Ex: prednisone, prednisolone, methylprednisolone, dexamethasone, and hydrocortisone). History of Fracture in Adulthood: No Secondary Osteoporosis: 1. Type 1 Diabetes: No 2. Hyperthyroidism: No 3. Menopause before 45: Unknown 4. Malnutrition: No 5. Chronic liver disease: No Rheumatoid Arthritis: No Current Tobacco Use: No RISK FACTORS HISTORY OF: Hip Fracture (Right/Left): No Spine Fracture: No History of Wrist Fracture: No Surgery to Spine/Hip(right/left)/Wrist (right/left): No Note: Patient is paralyzed, in motorized wheelchair. Unable to be transferred at the time of this exa m. Right forearm scan performed per request of ordering physician, could not accurately scan left for earm due to wheelchair and table setup. MEDICATIONS: Thyroid Medications: No Osteoporosis Medications: No EXAM MEASUREMENTS: Bone mineral densitometry was performed using the Trend[employer] System. Bone mineral density about the R Wrist (g/cm2): 0.452 T Score values are as follows: -----Dist. R+U: -0.2 -----Prox. R+U: - -----Radius total: - Z Score values are as follows: -----Dist. R+U: 0.9 -----Prox. R+U: - -----Radius total: - Baseline @MPH FRAX%s: N/A IMPRESSION: Normal (Values between +1 and -1 indicate normal bone mass). Consider repeating this study in 5 year s or sooner if there is some new clinical indication. NOTE: T-SCORE=SD OF THE YOUNG ADULT MEAN.
== END | disposition home or self-care (01) ==
LOC: RADBDWWP 10:47
PROVIDERS: ATTEND Internal Medicine Hematology & Oncology
DX: C50.411 Malignant neoplasm of upper-outer quadrant of right female breast (principal); Z87.820 Personal history of traumatic brain injury; Z99.3 Dependence on wheelchair; Z71.3 Dietary counseling and surveillance
CPT/HCPCS: 77080

== ENCOUNTER → 2023-08-10 | Outpatient (CLI) | payer MEDICARE ==
--- NOTE | 2023-08-10 11:32 | USB ---
Reason for Exam: Follow-up at short interval from prior study. Patient History: Menarche at age 15. Patient has no children. Left ovary removed at age 20. Right ovary removed at age 20. Hysterectomy at age 20. Postmenopausal. Breast cancer, right, age 60. 03/12/2021, Lumpectomy on the Right side. 03/12/2021, Lumpectomy on the Right side. 03/12/2021, Malignant Core Biopsy on the right side. 01/28/2021, Malignant Core Biopsy on the right side. 03/29/2014, High risk Core Biopsy on the right side. 03/29/2014, High risk Core Biopsy on the right side. 03/03/2014, High risk Cyst Aspiration on the right side. 03/03/2014, High risk Core Biopsy on the right side. Technique: Method: Whole Breast Handheld. Prior Study Comparison: 02/05/2015 Bilateral Diagnostic Mammogram, [facility]. 02/29/2016 Bilateral Diagnostic Mammogram, [facility]. 08/11/2022 Bilateral MG 3D diag mammo w/cad JIMMY, [facility]. Findings: The whole breast of both breasts, the axilla of both breasts and the retroareolar of both breasts were scanned. Whole bilateral breast ultrasounds including scanning of the subareolar region and axilla. Right: * At the 9:00 lumpectomy site, 8 cm from the nipple, there is now a mixed isoechoic and partially fluid area now measuring up to 2.9 x 2.7 x 0.7 cm. Suspect organizing scar tissue and trace seroma fluid. Reassess at a precautionary 3 month follow-up given the different appearance. * No other solid or cystic lesion or axillary lymphadenopathy. Left: * At the 3:00 position, 5 cm from the nipple, there is a bilobed hypoechoic lesion with associated vascularity measuring 8 x 8 x 4 mm, previously measuring 5 mm. Tissue sampling recommended. * At the 5:00 position, 5 cm from the nipple, there is an irregular shadowing hypoechoic lesion measuring 1.2 x 0.9 x 0.8 cm for which tissue sampling is recommended. * Borderline sized lymph node in the axilla measuring 1.8 x 1.5 x 0.7 cm shows uniform mild cortical thickening up to 3.6 mm, probably reactive/post inflammatory. * No other solid or cystic lesion. Overall Assessment: Incomplete: need additional imaging evaluation, BI-RAD 0 Management: Diagnostic Mammogram of both breasts. Electronically signed and approved by: Jaimee Krause M.D. Radiologist
--- NOTE | 2023-08-10 12:06 | MM ---
Reason for Exam: Follow-up at short interval from prior study. Last screening mammogram was performed 12 month(s) ago. Patient History: Menarche at age 15. Patient has no children. Left ovary removed at age 20. Right ovary removed at age 20. Hysterectomy at age 20. Postmenopausal. Breast cancer, right, age 60. 03/12/2021, Lumpectomy on the Right side. 03/12/2021, Lumpectomy on the Right side. 03/12/2021, Malignant Core Biopsy on the right side. 01/28/2021, Malignant Core Biopsy on the right side. 03/29/2014, High risk Core Biopsy on the right side. 03/29/2014, High risk Core Biopsy on the right side. 03/03/2014, High risk Cyst Aspiration on the right side. 03/03/2014, High risk Core Biopsy on the right side. Tissue Density: The breasts are heterogeneously dense, which may obscure small masses. Findings: Analyzed By CAD. Grouped heterogeneous calcifications posterior upper-outer quadrant left breast near the axilla not seen previously. Unable to obtain magnification views due to patient limitations of this area. Postsurgical and posttreatment changes right breast. A few scattered regional calcifications at the lumpectomy site appear to be new. Chronic nodularity lateral left breast. Overall Assessment: Suspicious, BI-RAD 4 Management: Ultrasound Core Biopsy of the left breast. Surgical Consultation of the left breast. 2 site ultrasound guided core needle biopsy left breast. Surgical consultation left breast for posterior upper-outer quadrant grouped calcifications. Patient not amenable to stereotactic core needle biopsy in this location. Results were given to the patient verbally at the time of exam. Electronically signed and approved by: Jaimee Krause M.D. Radiologist
== END | disposition home or self-care (01) ==
LOC: RADUSWWP 10:21
PROVIDERS: ATTEND Surgery
DX: R92.1 Mammographic calcification found on diagnostic imaging of breast (principal); N64.89 Other specified disorders of breast; R92.333 Mammographic heterogeneous density, bilateral breasts; Z85.3 Personal history of malignant neoplasm of breast; Z78.0 Asymptomatic menopausal state
CPT/HCPCS: 77066; 76641; G0279; 77062

== ENCOUNTER → 2023-09-02 | Day surgery (SDC) | payer MEDICARE ==
--- NOTE | 2023-09-03 08:12 | USB ---
Findings: Imaging was performed prior to scheduled biopsy of left 5:00 area 5 cm from the nipple. No persistent lesion is seen at this time and six-month precautionary follow-up ultrasound is advised. Management: Diagnostic Breast Ultrasound of the left breast in 6 months. Electronically signed and approved by: Lee Ochoa M.D. Radiologis
--- NOTE | 2023-09-08 14:13 | MM ---
Reason for Exam: Post Procedure Mammogram. Last screening mammogram was performed less than 1 month ago. Patient History: Menarche at age 15. Patient has no children. Left ovary removed at age 20. Right ovary removed at age 20. Hysterectomy at age 20. Postmenopausal. Breast cancer, right, age 60. 03/12/2021, Lumpectomy on the Right side. 03/12/2021, Lumpectomy on the Right side. 03/12/2021, Malignant Core Biopsy on the right side. 01/28/2021, Malignant Core Biopsy on the right side. 03/29/2014, High risk Core Biopsy on the right side. 03/29/2014, High risk Core Biopsy on the right side. 03/03/2014, High risk Cyst Aspiration on the right side. 03/03/2014, High risk Core Biopsy on the right side. 09/02/2023, US discontinued breast bx LT on the left side. Prior Study Comparison: 10/16/2014 Right Diagnostic Ultrasound, [facility]. 11/02/2014 Right Diagnostic Mammogram, [facility]. 02/05/2015 Bilateral Diagnostic Mammogram, [facility]. 02/05/2015 Right Diagnostic Ultrasound, [facility]. 02/29/2016 Bilateral Diagnostic Mammogram, [facility]. 07/07/2022 Bilateral US breast BILAT, [facility]. 08/11/2022 Bilateral MG 3D diag mammo w/cad JIMMY, [facility]. 02/10/2023 Right US breast RT, [facility]. 08/10/2023 Bilateral MG 3D diag mammo w/cad JIMMY, [facility]. 08/10/2023 Bilateral US breast BILAT, [facility]. Tissue Density: Left: The breasts are heterogeneously dense, which may obscure small masses. Pathology Description: Location: 3 o'clock. Marker Left Behind. Cores: 4 Gauge: 12 The procedure of ultrasound guided core biopsy was explained to the patient. Benefits, alternatives, and risks were discussed. An informed consent was then obtained. The patient was placed in supine positioning for imaging and for the procedure. The overlying skin was prepped and draped in usual sterile fashion. Lidocaine buffered with bicarbonate was used as anesthetic into the skin and subcutaneous tissue up to area of concern(bilobed lesion) in the left 3:00 5 cm from the nipple breast. Biopsy was performed while the patient was in a wheelchair. Under ultrasound guidance, a 12-gauge vacuum assisted biopsy gun device was used to obtain 4 core samples. Following this, a biopsy clip was left in lesion. The patient tolerated the procedure well without any immediate complication. The patient was kept in the radiology department for short stay after the procedure and then discharged home in stable condition. Postprocedure mammogram: The patient was transferred to mammography for physician ordered post procedure mammogram for clip placement verification. Impression: Successful, uncomplicated ultrasound guided core biopsy of area of concern in the left breast, full pathology results to follow. Pathology Results: Result: Benign, Lymph node. Pathology and radiology were reviewed. Findings are concordant. LEFT BREAST, THREE O'CLOCK, NEEDLE CORE BIOPSY: Benign lymph node. Overall Assessment: Benign Assessment: MG diagnostic mammo LT wo CAD. - Left: Probably benign, BI-RAD 3. Management: Diagnostic Mammogram of the left breast in 6 months. Electronically signed and approved by: Lee Ochoa M.D. Radiologis
== END ==
LOC: RADUSWWP 10:20
PROVIDERS: ATTEND Surgery
DX: R92.8 Other abnormal and inconclusive findings on diagnostic imaging of breast (principal)
CPT/HCPCS: 88305; 77065; 19083; 76641; A4648

== ENCOUNTER → 2023-09-17 | Outpatient (CLI) | payer MEDICARE ==
[2023-09-17 12:01] VITALS: PULSE 74; RESP 17; TEMP 97.8
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
== END ==
LOC: WWCWWP 10:51
PROVIDERS: ATTEND Surgery
DX: S06.9XAA Unspecified intracranial injury with loss of consciousness status unknown, initial encounter (principal); R92.0 Mammographic microcalcification found on diagnostic imaging of breast; C50.911 Malignant neoplasm of unspecified site of right female breast; N60.01 Solitary cyst of right breast; Z17.0 Estrogen receptor positive status [ER+]; Z48.817 Encounter for surgical aftercare following surgery on the skin and subcutaneous tissue; Z99.3 Dependence on wheelchair; Z87.891 Personal history of nicotine dependence; X58.XXXA Exposure to other specified factors, initial encounter

== ENCOUNTER → 2023-10-22 | Outpatient (CLI) | payer MEDICARE ==
--- NOTE | 2023-11-18 11:02 | USB ---
Reason for Exam: Mammographic abnormality. Patient History: Menarche at age 15. Patient has no children. Left ovary removed at age 20. Right ovary removed at age 20. Hysterectomy at age 20. Postmenopausal. Breast cancer, right, age 60. 09/02/2023, Benign US biopsy breast VAD LT on the left side. 03/12/2021, Lumpectomy on the Right side. 03/12/2021, Lumpectomy on the Right side. 03/12/2021, Malignant Core Biopsy on the right side. 01/28/2021, Malignant Core Biopsy on the right side. 03/29/2014, High risk Core Biopsy on the right side. 03/29/2014, High risk Core Biopsy on the right side. 03/03/2014, High risk Cyst Aspiration on the right side. 03/03/2014, High risk Core Biopsy on the right side. 09/02/2023, US discontinued breast bx LT on the left side. Technique: Method: Targeted. Prior Study Comparison: 08/11/2022 Bilateral MG 3D diag mammo w/cad J[facility]MY, [facility]. 08/10/2023 Bilateral MG 3D diag mammo w/cad [facility], [facility]. 09/02/2023 Left MG diagnostic mammo LT wo CAD., [facility]. Findings: The upper outer quadrant of the left breast, the axilla of the left breast and the retroareolar of the left breast were scanned. No solid or cystic masses are identified. Attention is paid to the upper outer quadrant with attention posteriorly extending towards the axillary tail and axilla. No abnormality to correlate with the region of calcifications is identified. Localization by ultrasound cannot be performed. Mammographic wire localization will be required. Consider attempting stereotactic localization. Overall Assessment: Negative, BI-RAD 1 Management: Surgical Consultation of the left breast. Needle Localization of the left breast. A clinical breast exam by your physician is recommended on an annual basis and results should be correlated with mammographic findings. This exam should not preclude additional follow-up of suspicious palpable abnormalities. Results were given to the patient verbally at the time of exam. Electronically signed and approved by: Demetri Bustamante D.O. Radiologis
--- NOTE | 2023-11-18 11:16 | MM ---
Reason for Exam: Hx of breast cancer, conservation therapy. Last screening mammogram was performed 2 month(s) ago. Patient History: Menarche at age 15. Patient has no children. Left ovary removed at age 20. Right ovary removed at age 20. Hysterectomy at age 20. Postmenopausal. Breast cancer, right, age 60. 09/02/2023, Benign US biopsy breast VAD LT on the left side. 03/12/2021, Lumpectomy on the Right side. 03/12/2021, Lumpectomy on the Right side. 03/12/2021, Malignant Core Biopsy on the right side. 01/28/2021, Malignant Core Biopsy on the right side. 03/29/2014, High risk Core Biopsy on the right side. 03/29/2014, High risk Core Biopsy on the right side. 03/03/2014, High risk Cyst Aspiration on the right side. 03/03/2014, High risk Core Biopsy on the right side. 09/02/2023, US discontinued breast bx LT on the left side. Prior Study Comparison: 08/11/2022 Bilateral MG 3D diag mammo w/cad J[facility]MY, [facility]. 08/10/2023 Bilateral MG 3D diag mammo w/cad [facility], [facility]. 09/02/2023 Left MG diagnostic mammo LT wo CAD., [facility]. Tissue Density: Left: The breasts are heterogeneously dense, which may obscure small masses. Findings: There is no suspicious group of microcalcifications or new suspicious mass in the left breast. Overall Assessment: Negative, BI-RAD 1 Management: Screening Mammogram of the left breast in 1 year. . Patient should continue monthly self-breast exams. A clinical breast exam by your physician is recommended on an annual basis. This exam should not preclude additional follow-up of suspicious palpable abnormalities. Note on Jada scores and lifetime risk: 1. A Jada score greater than 3% is considered moderate risk. If this is the case, consider specialist referral to assess eligibility for a risk reducing agent. 2. If overall lifetime risk for the development of breast cancer is 20% or higher, the patient may qualify for future screening with alternating mammogram and breast MRI. Electronically signed and approved by: Lee Ochoa M.D. Radiologis
== END | disposition home or self-care (01) ==
LOC: RADMAMWWP 12:00
PROVIDERS: ATTEND Surgery
DX: C50.911 Malignant neoplasm of unspecified site of right female breast (principal); Z78.0 Asymptomatic menopausal state; Z85.3 Personal history of malignant neoplasm of breast; Z90.722 Acquired absence of ovaries, bilateral

== ENCOUNTER → 2023-10-26 | Outpatient (CLI) | payer MEDICARE | END | disposition home or self-care (01) | LOC: LABPRL 12:15 | PROVIDERS: ATTEND Nurse Practitioner Family | CPT/HCPCS: 87077; 87086; 87186 ==

== ENCOUNTER → 2023-11-27 | Day surgery (SDC) | payer MEDICARE ==
[~2023-11-27] MED LIST changes: +ALPRAZolam 0.25 MG TAB PO PRN; -DEXAMETHASONE SOD PHOSPHATE 4 MG/ML 1 ML VIAL IV ONE; -HEPARIN SODIUM,PORCINE/PF 5,000 UNIT/0.5 ML SYRINGE SQ PRN; -HYDROmorphone 0.5 MG/0.5 ML SYRINGE IVP PRN; -LACTATED RINGERS 1,000 ML IV SCH; -LIDOCAINE 1% (10MG/ML) FOR IV START INTRADERMA ONE; -ONDANSETRON 4 MG/2 ML VIAL IVP ONE; -Pre Op ABX Message 1 EACH MISC MISCELLANE ONE
[2023-11-27 07:49] VITALS: BP 118/70; PULSE 82; RESP 16
[2023-11-27] MEDS: ALPRAZolam 0.5 MG TAB PO PRN (07:56)
[2023-11-27 08:51] VITALS: TEMP 98.2
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
== END ==
LOC: RADMAMWWP 07:14
PROVIDERS: ATTEND Surgery
DX: R92.8 Other abnormal and inconclusive findings on diagnostic imaging of breast
CPT/HCPCS: 88305